=== PATIENT | female | born 1935 | race Caucasian/White ===

== ENCOUNTER → 2017-06-26 | Outpatient (CLI) | payer OTHER, BC ==
[~2017-06-26] MED LIST: ACTONEL 5 MG5 M1 PO; ADULT LOW DOSE81 MG PO; AMOXICILLIN 50500 MG PO; CALCIUM + D3 E1 EACH PO; CALCIUM 600 +1 EAC1 PO; DIOVAN HCT 1601 EACH PO; FISH OIL WITH1 EACH PO; GLUCOSAMINE CH1 EAC8 PO; IBUPROFEN 200200 M1 PO; LEXAPRO 10 MG T10 M1 PO; LO-DOSE ASPIRIN81 M1 PO; LORAZEPAM 0.50.5 MG PO; MIRALAX255 GM PO; MULTIVITAMINS1 EAC7 PO; NORCO 5-325 TA1 EACH PO; OMEPRAZOLE 20 M20 M1 PO; SYMBICORT160 MCG/4. INH; ZANTAC 150MG T150 M1 PO; ZYVOX600 MG PO
== END ==
LOC: ULTRA 14:15
DX: I70.291 Other atherosclerosis of native arteries of extremities, right leg (principal); I10 Essential (primary) hypertension; K21.9 Gastro-esophageal reflux disease without esophagitis; J45.909 Unspecified asthma, uncomplicated

== ENCOUNTER → 2019-12-23 | Outpatient (CLI) | payer OTHER, BC ==
[~2019-12-23] VITALS: Ht 157.5 cm; Wt 64.4 kg
[~2019-12-23] MED LIST changes: +ADVAIR 100-501 EACH INH; +AZELASTINE205.5 MCG/ NARES; +FLONASE 0.05%50 MCG NARES; +IRBESARTAN-HCT1 EAC1 PO; +PROAIR HFA8.5 GM INH; +SINGULAIR 10 MG10 MG PO; +VOLTAREN GEL 1100 G1 TOP
[2019-12-23 08:38] VITALS: BP 152/70
[2019-12-23 08:42] LABS: HEMATOCRIT 34.8 % (37.0-47.0); MCH 30.7 pg (26.0-34.0); MCHC 34.5 g/dL (28.0-37.0); MCV 89.1 fL (80.0-100.0); RBC 3.91 mil/uL (4.20-5.00); RDW 14.5 % (10.5-14.5); WBC 3.9 thou/uL (4.0-11.0)
[2019-12-23 08:50] LABS: CALCIUM 9.2 mg/dL (8.5-10.1); CREATININE 0.7 mg/dL (0.6-1.0); POTASSIUM 4.2 mmol/L (3.5-5.1)
[2019-12-23 09:09] LABS: APTT 28.5 Seconds (24.5-32.8); PROTIME 10.3 Seconds (9.3-11.4)
== END | disposition home or self-care (01) ==
LOC: CATH 12-22 15:27
PROVIDERS: ATTEND Nuclear Medicine Nuclear Cardiology
DX: M54.9 Dorsalgia, unspecified (principal); M80.08XA Age-related osteoporosis with current pathological fracture, vertebra(e), initial encounter for fracture; I10 Essential (primary) hypertension; J44.9 Chronic obstructive pulmonary disease, unspecified; K21.9 Gastro-esophageal reflux disease without esophagitis; Z98.890 Other specified postprocedural states; Z79.899 Other long term (current) drug therapy; Z90.49 Acquired absence of other specified parts of digestive tract; Z90.710 Acquired absence of both cervix and uterus

== ENCOUNTER 2020-01-06 16:36 | Inpatient (IN) | payer OTHER, BC ==
[~2020-01-06] VITALS: Ht 152.4 cm; Wt 64.4 kg
[2020-01-06 16:38] VITALS: BP 114/57
[2020-01-06 17:30] LABS: BASOPHILS 0.3 % (0.0-2.0); EOSINOPHILS 0.5 % (0.0-3.0); HEMATOCRIT 35.3 % (37.0-47.0); HEMOGLOBIN 12.3 gm/dL (12.0-15.0); LYMPHOCYTES 8.2 % (24.0-44.0); MCH 30.8 pg (26.0-34.0); MCHC 34.9 g/dL (28.0-37.0); MCV 88.2 fL (80.0-100.0); MONOCYTES 7.6 % (1.0-8.0); PLATELET COUNT 336 thou/uL (150-400); POLYS 83.4 % (36.0-66.0); RDW 14.5 % (10.5-14.5); WBC 8.4 thou/uL (4.0-11.0)
[2020-01-06 17:36] LABS: ANION GAP 10 mmol/L (7-16); BUN 13 mg/dL (7-18); CALCIUM 9.3 mg/dL (8.5-10.1); CHLORIDE 87 mmol/L (98-107); CO2 24 mmol/L (21-32); CREATININE 0.8 mg/dL (0.6-1.0); GLUCOSE 123 mg/dL (74-106); SODIUM 121 mmol/L (136-145)
[2020-01-06 17:48] LABS: ALBUMIN 3.6 g/dL (3.4-5.0); SGOT 20 U/L (15-37); SGPT 18 U/L (30-65); TOTAL BILIRUBIN 0.6 mg/dL (0.2-1.0); TOTAL PROTEIN 6.9 g/dL (6.4-8.2); TROPONIN-I <0.06 ng/mL (<0.06)
[2020-01-06] MEDS ORDERED: ALEVE220 MG PO (19:18)
[2020-01-06] MEDS ORDERED: AVALIDE 300-121 EACH PO (19:18)
[2020-01-06 19:55] VITALS: BP 157/84
[2020-01-06 20:42] VITALS: BP 137/76
[2020-01-06 20:55] VITALS: BP 154/86
--- NOTE | 2020-01-07 00:12 | NUR ---
PT WAS ADMITTED TO THE UNIT FROM THE ER IN A STABLE CONDITION.PT HAS A CAST COVERED WITH CASPER WRAP ON HER RLE.ADMISSION HX, EDUCATION AND ASSESSMENT COMPLETED.PT C/O PAIN ON HER RLE,MANAGED WITH MED.ORDER NOTED TO INSERT A BENTON,PT HAS A BENTON TO DD.FALL PRECAUTIONS IN PLACE,CALL LIGHT WITHIN REACH.
[2020-01-07 04:05] VITALS: BP 139/85
[2020-01-07 06:00] LABS: CALCIUM 9.2 mg/dL (8.5-10.1); CREATININE 0.7 mg/dL (0.6-1.0); POTASSIUM 3.7 mmol/L (3.5-5.1)
[2020-01-07 06:22] LABS: PROTIME 10.5 Seconds (9.3-11.4)
[2020-01-07 08:11] LABS: HEMATOCRIT 34.2 % (37.0-47.0); HEMOGLOBIN 11.5 gm/dL (12.0-15.0); MCH 30.2 pg (26.0-34.0); MCHC 33.7 g/dL (28.0-37.0); MCV 89.5 fL (80.0-100.0); RBC 3.82 mil/uL (4.20-5.00); RDW 14.3 % (10.5-14.5); WBC 6.2 thou/uL (4.0-11.0)
[2020-01-07 10:54] VITALS: BP 151/89
--- NOTE | 2020-01-07 14:39 | NUR ---
ASSESSMENT: CM REVIEWED CHART AND MET WITH PATIENT AT THE BEDSIDE. PT WAS ADMITTED AFTER TIB FIB FRACTURE AND IS HAVING SURGERY TODAY. PT REPORTS SHE LIVES IN A HOUSE WITH HER DAUGHTER. PT REPORTS HAVING NO STEPS SHE HAS TO USE AT THE HOME. PT NORMALLY AMBULATES VIA WHEELCHAIR BUT ALSO HAS A WALKER AT HOME. PT REPORTS HAVING A SHOWER BENCH. PT STATES SHE HAD HH YEARS AGO ([facility]). PT REPORTS SHE HAS NEVER BEEN TO A SNF/ACUTE REHAB. PER ATTENDING PT MAY NEED TO GO TO A SNF AFTER SURGERY PENDING HOW SHE DOES WITH THERAPY. CM ATTEMPTED TO CONTACT PATIENTS DAUGHTER ENRIQUETA BUT UNABLE TO REACH AND VM WAS LEFT. CM LEFT A LIST OF SNF FACILITIES AT THE BEDSIDE. NO PLANS FOR WEEKEND DISCHARGE. CM WILL CONTINUE TO FOLLOW TO ASSIST NEEDED.
[2020-01-07 15:11] LABS: HEMATOCRIT 29.4 % (37.0-47.0); HEMOGLOBIN 10.1 gm/dL (12.0-15.0); MCH 30.9 pg (26.0-34.0); MCHC 34.5 g/dL (28.0-37.0); MCV 89.8 fL (80.0-100.0); RBC 3.28 mil/uL (4.20-5.00); RDW 14.6 % (10.5-14.5)
[2020-01-07 16:19] VITALS: BP 149/87
--- NOTE | 2020-01-07 16:19 | EKG ---
[facility] [place] [address] ELECTROCARDIOGRAM REPORT Name: MARISELA THRASHER Room #: 443- ADM IN M.R.#: [id number] Admission: 01/06/20 Attend Phys: Wild Schmidt, Discharge: Date of : 31 Report #: [id number] THIS REPORT FOR: cc: Jamey Jay,Marcos Concepcion Jr.,Marcos Hearn,Daljit Robertson MD [facility] ~ THIS REPORT FOR: //name// [facility] ED Test Date: 2020-01-06 Test Time: 19:32:27 Pat Name: MARISELA THRASHER Department: Room: 443 Gender: F Field Care Advocate: LLOYD : 1935 Requested By: Huang Presley Order Number: [id number] MD: Daljit Hearn Measurements Intervals Otto Rate: 80 P: 44 WY: 225 QRS: 5 QRSD: 99 T: 58 QT: 404 QTc: 466 Interpretive Statements Sinus rhythm Prolonged WY interval No previous ECG available for comparison Electronically Signed On 01-07-2020 16:19:03 CDT by Daljit Hearn [email or web address] <ELECTRONICALLY SIGNED> By: Daljit Hearn MD, [facility] 01/07/20 1619 31 31 Daljit Hearn MD, [facility] /EPI
--- NOTE | 2020-01-07 16:49 | NUR ---
PT A&OX4. DRWOSESteven, RETURNED FROM PACU. VSS. O2 @ 2L. SOFT CAST TO R LOWER EXTREMITY SECURED WITH CASPER WRAP. SCD AND RENE HOSE TO LLE. DAUGHTER AT THE BEDSIDE. CALL LIGHT W/I REACH, BED ALARM ON. CHTEAN TO ALEKSANDRA.
[2020-01-07 17:56] VITALS: BP 137/77
[2020-01-07 23:30] VITALS: BP 105/55
--- NOTE | 2020-01-08 03:37 | NUR ---
PT IS S/P R TIB-FIB IM NAILING. RLE IN SPLINT, ELEVATED AND ICE GABRIELLA IN PLACE.PT GIVEN ONE TIME DOSE OF FENTANYL FOR A 7/10 PAIN. R TOES WITH GOOD CIRCULATION, SENSATION AND MOVEMENT. AFEBRILE. REMAINS ON ROOM AIR. BENTON TO D/D WITH LIGHT YELLOW U/O, SHE CONTINUES ON IV FLUIDS AND ABTS.SHE IS ALSO DRINKING SOME. ONLY OTHER DISCOMFORT WAS DYSPEPSIA, TUMS HELPED.SHE REMAINS ALERT AND ORIENTED. SPLINT TO RLE INTACT, BLEEDING NOTED ON DRSG- NOT WORSENING, WILL CONTINUE TO MONITOR.
[2020-01-08 04:10] VITALS: BP 115/59
[2020-01-08 05:37] LABS: HEMOGLOBIN 8.6 gm/dL (12.0-15.0); MCH 30.8 pg (26.0-34.0); MCHC 34.4 g/dL (28.0-37.0); MCV 89.6 fL (80.0-100.0); RBC 2.8 mil/uL (4.20-5.00); RDW 14.3 % (10.5-14.5); WBC 8.1 thou/uL (4.0-11.0)
[2020-01-08 08:00] VITALS: BP 109/65
[2020-01-08 10:05] LABS: CALCIUM 8.4 mg/dL (8.5-10.1); CREATININE 0.7 mg/dL (0.6-1.0); POTASSIUM 3.8 mmol/L (3.5-5.1)
--- NOTE | 2020-01-08 14:52 | NUR ---
ORDERED KNEE HIGH RENE PEREZ FROM FOR PATIENT.
[2020-01-08 15:30] VITALS: BP 126/61
--- NOTE | 2020-01-08 20:48 | NUR ---
PT UP IN BEDSIDE CHAIR TODAY ALSO WORKED WITH THERAPY GIVEN PRN PAIN MEDS ORDERED AND REQUESTED. RIGHT TIBIA DRESSING REINFORCED AND LOWER HALF DRESSING CHANGED. FLUIDS INFUSING ORDERED.
--- NOTE | 2020-01-09 02:44 | NUR ---
ASSESSMENT COMPLETED. SPLINT IN PLACE TO RLE WHICH IS ALSO ELEVATED ON PILLOW. PT DENIES PAIN. DRSG REMAINS C/D/I. GOOD SENSATION, MOVEMENT AND CIRCULATION NOTED TO THE R TOES. ON ROOM AIR-NO DISTRESS.
[2020-01-09 04:45] VITALS: BP 183/74
[2020-01-09 05:44] LABS: ABSOLUTE NEUTROPHILS 4.2 thou/uL (1.4-8.2); BASOPHILS 0.8 % (0.0-2.0); EOSINOPHILS 1.1 % (0.0-3.0); HEMATOCRIT 24.4 % (37.0-47.0); HEMOGLOBIN 8.4 gm/dL (12.0-15.0); LYMPHOCYTES 17.9 % (24.0-44.0); MCH 30.9 pg (26.0-34.0); MCHC 34.5 g/dL (28.0-37.0); MCV 89.8 fL (80.0-100.0); MONOCYTES 9.7 % (1.0-8.0); PLATELET COUNT 279 thou/uL (150-400); POLYS 70.5 % (36.0-66.0); RBC 2.72 mil/uL (4.20-5.00); RDW 14.3 % (10.5-14.5)
[2020-01-09 06:06] LABS: CALCIUM 8.6 mg/dL (8.5-10.1); CREATININE 0.7 mg/dL (0.6-1.0); POTASSIUM 3.3 mmol/L (3.5-5.1)
[2020-01-09 07:15] VITALS: BP 156/76
[2020-01-09 16:00] VITALS: BP 133/64
--- NOTE | 2020-01-09 16:33 | NUR ---
PT A&OX4. NWB TO RIGHT LOWER EXTREM. FOOT IS SWOLLEN, WARM TO TOUCH AND BRUISED. TOLERATING PO PAIN MED WELL. APPETITE IS GOOD. SEROUS SANG DRAINAGE DRAINING FROM THE BOTTOM OF DRSG. WILL REINFORCE DRSG.CALL LIGHT W/I REACH BED ALARM ON.
[2020-01-09 19:23] VITALS: BP 138/71
[2020-01-09 20:43] VITALS: BP 138/71
[2020-01-10 04:04] VITALS: BP 141/85
--- NOTE | 2020-01-10 05:56 | NUR ---
PT AOX4. PT DENIES PAIN AT REST, REPORTS EXACERBATION IN PAIN WITH MOVEMENT. PT CAPILLARY REFILL TO RLE SLUGGLISH, LLE LESS THAN 3SECONDS. SENSATION INTACT TO BLE. BLE BLANCHABLE. PT DENIES SOB. PT REFUSES PAIN MEDICATION DUE TO REPORTS OF COMFORT AT REST. PT HAS PRN PO NORCO Q4HR, PRN IV MORPHINE Q1HR, PRN IV FENTANYL Q4HR AVAILABLE. FREQUENT REPOSITIONING ENCOURAGED, PT REFUSING Q2HR TURNS DUE TO REPORTS OF COMFORT. PT TOLERATING PO INTAKE OF FLUIDS AND REGULAR DIET. PT RESTING IN BED THROUGHOUT THE SHIFT. PT NOTED TO REST IN BED WITHOUT INTERRUPTION OR OBSERVATION OF PAIN, DISCOMFORT, OR SOB. ENCOURAGED PT TO NOTIFY STAFF FOR ALL NEEDS. CALL LIGHT WITHIN REACH, BED ALARM ON, BED IN LOWEST POSITION, WILL CONTINUE TO MONITOR.
[2020-01-10 06:24] LABS: CALCIUM 8.3 mg/dL (8.5-10.1); CREATININE 0.5 mg/dL (0.6-1.0); POTASSIUM 3.4 mmol/L (3.5-5.1)
[2020-01-10 08:10] VITALS: BP 180/85
--- NOTE | 2020-01-10 09:14 | H ---
[facility] [place] [address] [place] [address] HISTORY AND PHYSICAL Name: MARISELA THRASHER Room #: 443-P ADM IN M.R.#: [id number] Admission: 01/06/20 Attend Phys: Wild Schmidt, Discharge: Date of : 33 Report #: [id number] THIS REPORT FOR: cc: Marcos Concepcion Jr., MD, Jr., Samuel D. MD Gates, Clinton R. MD ~ CC: Wild Concepcion DATE OF SERVICE: 01/06/2020 ATTENDING PHYSICIAN: Dr. Koroma. CHIEF COMPLAINT: Fall out of a wheelchair. HISTORY OF PRESENT ILLNESS: The patient is a very pleasant 84-year-old female who is status post fall out of a wheelchair. The patient reports that she was on her way to the bathroom in her wheelchair when she began having a woozy feeling in her head. She passed out, fell out of the wheelchair and fell onto her right side. She did lose consciousness. She is complaining of pain in her right leg only. She does have chronic back pain, but notes that this is unchanged. PAST MEDICAL HISTORY: 1. On 81 mg aspirin. 2. Hypertension. 3. Asthma. 4. Osteoporosis. 5. COPD. PAST SURGICAL HISTORY: 1. Appendectomy. 2. Recent spine procedures, possible kyphoplasty. 3. Hysterectomy. 4. Right knee procedure. SOCIAL HISTORY: Lives with daughter. Lives in [place]. FAMILY HISTORY: Denies coagulopathy or malignancy. REVIEW OF SYSTEMS: CONSTITUTIONAL: No fever. No chills. HEENT: Denies blurring of vision, double vision, headaches, hearing loss, sinus drainage or sore throat. Denies blurring of vision, double vision, headaches, hearing loss, sinus drainage or sore throat. [facility] [address] [place] [address] HISTORY AND PHYSICAL Name: MARISELA THRASHER Room #: 443-P [facility].#: [id number] Admission: 01/06/20 Attend Phys: Wild Schmidt, Discharge: Date of : 33 Report #: [id number] CARDIOVASCULAR: Denies chest pain, palpitations, orthopnea or paroxysmal nocturnal dyspnea. RESPIRATORY: Denies cough, wheezing, hemoptysis, or shortness of air. GASTROINTESTINAL: No nausea. No vomiting. No diarrhea. No Heartburn. No nausea. No vomiting. No diarrhea. No Heartburn. GENITOURINARY: Denies dysuria or hematuria or kidney stones. No urinary frequency, urgency or incontinence. Denies dysuria or hematuria or kidney stones. No urinary frequency, urgency or incontinence. MUSCULOSKELETAL: Please see above and below. NEUROLOGICAL: Denies tremor, stroke or seizure. Denies tremor, stroke or seizure. HEMATOLOGIC/LYMPHATICS: Denies easy bruising, easy bleeding or enlarged lymph nodes. SKIN: No rash or ulceration. ENDOCRINE: No heat or cold intolerance PSYCHIATRIC: Denies depression, anxiety, or schizophrenia. PHYSICAL EXAMINATION: VITAL SIGNS: Temperature is 36.4, pulse 87, respiratory rate 18, blood pressure 151/89, pulse oximetry 100%. GENERAL: No apparent distress, alert and oriented x3. HEENT: PERRLA, EOMI, MMM, NCAT. NECK: Supple. No LAD. CARDIOVASCULAR: Regular rhythm and rate. Hemodynamically stable. Normal capillary refill. Regular rhythm and rate. Hemodynamically stable. Normal capillary refill. PULMONARY: Nonlabored. Clear to auscultation bilaterally. ABDOMEN: Soft, nontender to palpation, no guarding, no rigidity, no rebound tenderness, no hernias. EXTREMITIES: Calves soft, nontender, no edema. SKIN: No rashes or bruises. PSYCHIATRIC: Normal mood and affect Normal mood and affect. NEUROLOGICAL: Grossly intact. CN II-XII grossly intact. MUSCULOSKELETAL: Right lower extremity in a splint, able to wiggle toes and feel light touch sensation. C, T and L-spine are nontender to palpation. LYMPHATICS: No cervical, inguinal, or supraclavicular lymphadenopathy. IMAGING: Impression: 1. Right midshaft tibial fracture with distal fragment showing 1.2 cm medial and 6 mm anterior position in relation to the proximal shaft. 2. Comminuted distal third fibular shaft fracture with oblique component of 1.8 cm comminuted fragment. The distal fibula shows 6 mm anterior positioning in relation to the proximal shaft. Chest x-ray: [facility] [address] [place] [address] HISTORY AND PHYSICAL Name: MARISELA THRASHER Sinan Room #: 443-P ADM IN M.R.#: [id number] Admission: 01/06/20 Attend Phys: Wild Schmidt, Discharge: Date of : 33 Report #: [id number] Impression: No acute cardiopulmonary process detected. Foot x-ray: Impression: Oblique distal fifth metatarsal shaft fracture without significant displacement. No additional fractures are seen. Prominent overlying iatrogenic soft tissue density is demonstrated. CT head: Impression: 1. Moderately prominent periventricular microvascular ischemia with mild atherosclerotic change. 2. No findings of acute intracranial abnormality. 3. Volume loss. CTA lower extremity: Impression: 1. Diffuse peripheral arterial disease. There is multifocal, probably less than 50% stenosis of the common femoral and superficial femoral arteries bilaterally. 2. Greater than 70% bilateral popliteal artery stenosis secondary to circumferential calcified atherosclerosis plaque. 3. Three-vessel runoff is present bilaterally. 4. Comminuted right tibia and fibula fractures. 5. Large amount of retained stool in the colon. ASSESSMENT/PLAN: The patient is an 84-year-old female status post fall out of a wheelchair. DIAGNOSES: 1. Fall out of a wheelchair. 2. Syncope. 3. Right tib-fib fracture. 4. Hypertension. 5. Chronic obstructive pulmonary disease. 6. Wheelchair bound. RECOMMENDATIONS: 1. Admit to trauma. 2. Consult Orthopedic Surgery. Appreciate recommendations. Bed rest until evaluation. 3. Consult Medicine. Appreciate recommendations. Syncope workup per Medicine. 3. Analgesics and antiemetics. 4. Bowel regimen for constipation, only on the diet. [facility] [address] [place] [address] HISTORY AND PHYSICAL Name: MARISELA THRASHER Sinan Room #: 443-P ADM IN [facility]#: [id number] Admission: 01/06/20 Attend Phys: Wild Schmidt, Discharge: Date of : 33 Report #: [id number] 5. Increase activity with physical therapy status post orthopedic evaluation. 6. Case management consult. <ELECTRONICALLY SIGNED> By: Lazaro Koroma MD 01/10/20 0914 1110 1153 Lazaro Koroma MD /nt
--- NOTE | 2020-01-10 13:40 | NUR ---
ON-GOING ASSESSMENT: CM REVIEWED CHART AND SPOKE WITH ATTENDING. PT IS LIKELY STABLE FOR DISCHARGE TOMORROW TO SNF. CM DISCUSSED WITH PT AND HER DAUGHTER. THEY WANTED [facility]FERRALS S[facility]. [facility] WAS NOTIFIED THAT [facility] ARE NOT ACCEPTING NEW ADMITS AT THIS TIME. CM SENT REFERRALS TO [facility] AND [facility] AND AWAITING FURTHER INPUT. CM WILL CONTINUE TO FOLLOW TO ASSIST NEEDED.
[2020-01-10 15:15] VITALS: BP 119/76
--- NOTE | 2020-01-10 16:00 | NUR ---
ASSESSED AT START OF SHIFT 0700 PT A&OX4. UP WITH PHYSICAL THERAPY TO THE CHAIR. PT DTR AT BEDSIDE. PAIN MEDS GIVEN FOR MANAGEMENT. IV INTACT AND FLUIDS INFUSING. FALL PREC IN PLACE AND CALL LIGHT IN REACH WILL CONT TO MONITOR.
[2020-01-10 19:50] VITALS: BP 142/86
--- NOTE | 2020-01-11 02:38 | NUR ---
ASSUMED PT CARE AT 1900. PT A&OX4. FLUIDS WERE D/C TONIGHT. REPORTED PAIN IN FOOT, BUT DID NOT WANT PAIN MEDICATION FOR IT. BENTON PATENT WITH GOOD OUTPUT. RIGHT LEG DRESSING HAS SOME WHAT LOOKS LIKE DRIED DARINAGE TO IT. RADIOLOGY CALLED STATING THE MRI COULD NOT BE DONE 01/09 AND THEY WOULD DO IT TODAY, ASKED FOR ORDER TO BE UPDATED. PT CURRENTLY RESTING IN BED WITH EYES CLOSED. NO OTHER SIGNIFICANT CHANGES AT THIS TIME.
[2020-01-11 04:02] VITALS: BP 156/77
[2020-01-11 05:56] LABS: ABSOLUTE NEUTROPHILS 4.3 thou/uL (1.4-8.2); BASOPHILS 0.7 % (0.0-2.0); EOSINOPHILS 2.6 % (0.0-3.0); HEMATOCRIT 24.4 % (37.0-47.0); HEMOGLOBIN 8.2 gm/dL (12.0-15.0); LYMPHOCYTES 17.7 % (24.0-44.0); MCH 30.3 pg (26.0-34.0); MCHC 33.6 g/dL (28.0-37.0); MCV 90.1 fL (80.0-100.0); MONOCYTES 9.5 % (1.0-8.0); PLATELET COUNT 293 thou/uL (150-400); POLYS 69.5 % (36.0-66.0); RDW 14.1 % (10.5-14.5); WBC 6.1 thou/uL (4.0-11.0)
[2020-01-11 06:35] LABS: ALBUMIN 2.7 g/dL (3.4-5.0); CALCIUM 8.5 mg/dL (8.5-10.1); CREATININE 0.5 mg/dL (0.6-1.0); POTASSIUM 3.8 mmol/L (3.5-5.1)
[2020-01-11 06:40] LABS: CALCIUM 8.6 mg/dL (8.5-10.1); CREATININE 0.5 mg/dL (0.6-1.0)
[2020-01-11 08:04] VITALS: BP 144/78
--- NOTE | 2020-01-11 08:36 | 2DMMODE ---
[facility] [place] [address] 2 D/M-MODE ECHOCARDIOGRAM Name: MARISELA THRASHER Room #: 443-P [facility] IN ..#: [id number] Admission: 01/06/20 Attend Phys: Wild Schmidt, Discharge: Date of : 33 Report #: [id number] THIS REPORT FOR: cc: Marcos Concepcion Jr., MD, Jr.,Marcos Hearn,Daljit Robertson MD [facility] ~ APPROVED REPORT Study performed: 01/11/2020 07:41:58 EXAM: Comprehensive 2D, Doppler, and color-flow Echocardiogram Patient Location: Bedside Room #: 443 Status: routine BSA: 1.61 HR: 88 bpm BP: 156/77 mmHg Rhythm: Regular Other Information Study Quality: Good Indications Murmur, syncope. 2D Dimensions RVDd: 24.39 mm IVSd: 11.00 (7-11mm) LVOT Diam: 21.00 (18-24mm) LVDd: 41.00 mm PWd: 11.00 (7-11mm) Ascending Ao: 36.00 (22-36mm) LVDs: 28.31 (25-40mm) Aortic Root: 39.00 mm Volumes Left Atrial Volume (Systole) Single Plane 4CH: 47.08 mL Single Plane 2CH: 66.27 mL LA ESV Index: 36.00 mL/m2 Aortic Valve AoV Peak Gibran.: 2.30 m/s AO Peak Gr.: 21.24 mmHg LVOT Max P.82 mmHg AO Mean Gr.: 10.10 mmHg AO V2 Mean: 1.50 m/s LVOT Max V: 1.57 m/s AO V2 VTI: 41.04 cm [facility] [address] [place] [address] 2 D/M-MODE ECHOCARDIOGRAM Name: MARISELA THRASHER Room #: 443-P [facility] IN ..#: [id number] Admission: 01/06/20 Attend Phys: Wild Almazan Discharge: Date of : 33 Report #: [id number] Vmax: 2.30 cm2 Mitral Valve IVRT: 93.43 ms Pulmonary Valve PV Peak Gibran.: 0.83 m/s PV Peak Gr.: 2.73 mmHg Tricuspid Valve RAP Estimate: 5.00 mmHg Left Ventricle The left ventricle is normal size. There is normal LV segmental wall motion. Mild basal septal hypertrophy is present. Left ventricular systolic function is hyperdynamic. LVEF is 65-70%. This study is not technically sufficient to allow evaluation of the LV diastolic function. Right Ventricle The right ventricle is normal size. The right ventricular systolic function is normal. Atria Left atrium is mildly dilated. The right atrium size is normal. Aortic Valve Aortic valve is moderately calcified No aortic regurgitation is present. There is no aortic valvular stenosis. Mitral Valve The mitral valve is normal in structure. Moderate mitral regurgitation. No evidence of mitral valve stenosis. Tricuspid Valve The tricuspid valve is normal in structure. There is no tricuspid valve regurgitation noted. Unable to assess PA pressure. Pulmonic Valve The pulmonary valve is normal in structure. Trace pulmonic regurgitation. Great Vessels Aortic root is mildly dilated (3.9). The ascending aorta is normal in size. IVC is normal in size and collapses >50% with inspiration. [facility] [place] [address] 2 D/M-MODE ECHOCARDIOGRAM Name: MARISELA THRASHER Sinan Room #: 443-P [facility] IN .R.#: [id number] Admission: 01/06/20 Attend Phys: Wild Almazan Discharge: Date of : 33 Report #: [id number] Pericardium There is no pericardial effusion. <Conclusion> Left ventricular systolic function is hyperdynamic. There is normal LV segmental wall motion. LVEF is 65-70%. Left atrium is mildly dilated. Aortic valve is moderately calcified. No aortic regurgitation or stenosis The mitral valve is normal in structure. Moderate mitral regurgitation. Unable to assess pulmonary artery pressure. Aortic root is mildly dilated (3.9). There is no pericardial effusion. <ELECTRONICALLY SIGNED> By: Daljit Hearn MD, [facility] 01/11/20 0836 D: 07/835 5 Daljit Hearn MD, FACC /INF
--- NOTE | 2020-01-11 16:07 | NUR ---
ON-GOING ASSESSMENT: CM REVIEWED CHART AND SPOKE WITH ATTENDING. PLANS WERE FOR PATIENT TO DISCHARGE TO [facility] PENDING MRI RESULTS. PT HAD MRI AND IR WAS CONSULTED. CM UPDATED LIASON FROM [facility]. CM WILL CONTINUE TO FOLLOW TO ASSIST NEEDED.
[2020-01-11 16:40] VITALS: BP 149/76
--- NOTE | 2020-01-11 19:30 | NUR ---
PT ASSESSED AT START OF SHIFT. WORKED W/ THERAPY SOME. DAUGHTER HERE FOR VISIT. EATING WELL. HAD ECHO. WENT FOR MRI OF SPINE LATER AFTERNOON AND NOTED TO HAVE COMPRESSION FRACTURE SINCE HAVING KYPHOPLASTY 2 WEEKS AGO. NEURO AND IR CONSULT PER DR. DAVIS.
[2020-01-12 01:42] VITALS: BP 155/84
--- NOTE | 2020-01-12 03:14 | NUR ---
ASSUMED PT CARE AT 1900. PT IS A&OX3. ANXIOUS TONIGHT, WORRIED ABOUT INJURY TO BACK. JUST WANTED TO TAKE HER NIGHTTIME MEDS AND GO TO SLEEP. DRESSING D/C/I, LEGS ELEVATED ABOVE THE HEART DUE TO EDEMA IN FEET. PAIN BEING MANAGED WITH PO PAIN MEDS. NO OTHER SIGNIFICANT CHANGES.
[2020-01-12 03:45] VITALS: BP 149/90
[2020-01-12 08:49] VITALS: BP 138/93
--- NOTE | 2020-01-12 11:19 | NUR ---
ON-GOING ASSESSMENT: CM REVIEWED CHART. PLAN IS FOR PATIENT TO HAVE KYPHO TOMORROW. [facility] [place] WAS NOTIFIED. [facility]RO SPOKE WITH LISET IN ADMISSIONS TO CLARIFY IF PATIENT NEED ANOTHER COVID TEST PRIOR TO ADMITTING AND SHE STATES THE PATIENT DOES NOT NEED TO HAVE ANOTHER TEST AND THE NEGATIVE RESULT FROM 01/05 IS OK. CM WILL CONTINUE TO FOLLOW.
[2020-01-12 16:02] VITALS: BP 120/58
--- NOTE | 2020-01-12 18:22 | NUR ---
Assumed patient care at 0715. Vital signs stable, LSCTA, ABD soft and non-tender, BS x's 4; skin is clean, warm, dry and intact. IV is in left AC, patent. Patient is alert and oriented x's 4, she has a savage catheter in place due to recent surgery as well as T-12 Compression fracture. Patient is to have Kyphoplasty tomorrow. Patient's pain has been difficult to reduce. Hydrocodone po is not effective at all. Morphine 2mg per IV push is effective for an hour to 1 hour and 15minutes. Fentanyl 1mL q 4 hrs per IV push is effective as well. Patient does not seem to rate her pain as high as it appears to be, as she moans, winces and frowns in pain. 2nd Covid Test sent to lab. Results will be in tomorrow. Will report to on-coming nurse.
[2020-01-12 21:45] VITALS: BP 138/47
[2020-01-13] VITALS (9 sets, daily range): BP systolic 101–153; BP diastolic 59–79
--- NOTE | 2020-01-13 03:19 | NUR ---
ASSUMED PT CARE AT 1900. PT SLEEPING UPON SHIFT CHANGE. PM MEDS GIVEN WITH A PAIN PILL. BENTON PATENT WITH GOOD OUTPUT. NPO SINCE MIDNIGHT FOR PROCEDURE TOMORROW. LEG ELEVATED, DRESSING D/C/I. NO COMPLAINTS AT THIS TIME, WILL CONTINUE TO MONITOR.
[2020-01-13] MEDS ORDERED: NORVASC5 MG PO (09:18)
--- NOTE | 2020-01-13 11:46 | NUR ---
UPON GREETING PT THIS MORNING, PT WENT TO SURGERY PRECEDURE, TOLERATED SURGERY APPROPRIATELY, ASSESSMENT WITH STABLE VITALS, BENTON REMOVED, REGULAR DIET POST SURGERY, C/O LOWER BACK PAIN, MORNING MEDS ADMINISTERED WITH PAIN PATCH TO LOWER BACK. FALL PRECAUTIONS IN PLACE, CONTINUE TO MONITOR.
--- NOTE | 2020-01-13 13:01 | NUR ---
PT DISCHARGING TODAY TO [facility] FAXED DC ORDERS/SUMMARY TO FACILITY SPOKE WITH JAE IN ADM SHE RECEIVED ORDERS AND ARRANGED TRANSPORT BY [facility] FOR 1425 TODAY. NOTIFIED PT'S SON (KATIE) OF DC AND TIME OF TRANSPORT. UNIT NOTIFIED AND CHART COPY PER US. RN TO CALL REPORT TO [phone]
--- NOTE | 2020-01-13 13:27 | NUR ---
PT DISCHARGING TODAY TO [facility] FAXED DC ORDERS/SUMMARY TO FACILITY SPOKE WITH JAE IN ADM SHE RECEIVED ORDERS AND ARRANGED TRANSPORT BY [facility] FOR 1400 TODAY. NOTIFIED PT'S SON (KULWANT) OF DC AND TIME OF TRANSPORT. UNIT UNOTIFIED AND CHART COPY PER US. RN TO CALL REPORT TO [phone].
--- NOTE | 2020-01-13 16:50 | NUR ---
Call re'd from RN, as surgery saw the pt and placed dc on hold due to pain. Anticipating dc ready for snf tomorrow. [facility] notified and transport cancel. Family aware as they were in the room with the pt. Will follow.
--- NOTE | 2020-01-13 21:26 | NUR ---
1900 ASSUMED CARE OF PT AFTER BEDSIDE REPORT 2100 BASELINE ASSESSMENT COMPLETED, PAIN MEDS GIVEN FOR PAIN RATED 8/10 TO BACK, FALL PRECAUTIONS IN PLACE, WILL CONTINUE TO MONITOR
--- NOTE | 2020-01-14 03:48 | NUR ---
PT AOX4. PT NOTED TO EDOUARD, HEARING AIDES IN CONTAINER ON BEDSIDE TABLE. PT DENIES PAIN AND SOB. PAIN NOTED TO WORSEN WITH MOVEMENT. PT RECEIVING PRN PO NORCO Q4HR AND PRN IV MORPHINE Q1HR. PT HAS PRN PO APAP Q4HR AVAILABLE. FREQUENT REPOSITIONING ENCOURAGED. PT NOTED TO SHIFT INDEPENDENTLY WHILE IN BED. WHILE PROVIDING PERICARE, BLISTER TO LEFT GLUTEAL FOLD, BLISTER WITH FLUID, NONTENDER, NO SURROUNDING REDDNESS. BARRIER CREAM CONTINUES TO BE APPLIED WITH ALL PERICARE. PT TOLERATING PO INTAKE OF FLUIDS WITHOUT ISSUE. PT CONTINUES TO REST IN BED WITHOUT INTERRUPTION OR OBSERVATION OF PAIN, SOB, OR DISCOMFORT. ENCOURAGED PT TO NOTIFY STAFF FOR ALL NEEDS. CALL LIGHT WITHIN REACH, BED ALARM ON, BED IN LOWEST POSITION, WILL CONTINUE TO MONITOR.
[2020-01-14 04:26] VITALS: BP 145/77
[2020-01-14 06:00] LABS: HEMATOCRIT 25.1 % (37.0-47.0); HEMOGLOBIN 8.4 gm/dL (12.0-15.0); MCH 30.5 pg (26.0-34.0); MCHC 33.7 g/dL (28.0-37.0); MCV 90.4 fL (80.0-100.0); RBC 2.77 mil/uL (4.20-5.00); RDW 14.1 % (10.5-14.5); WBC 7.6 thou/uL (4.0-11.0)
[2020-01-14 06:16] LABS: ALBUMIN 2.6 g/dL (3.4-5.0); CALCIUM 8.9 mg/dL (8.5-10.1); CREATININE 0.6 mg/dL (0.6-1.0); MAGNESIUM 1.8 mg/dL (1.8-2.4); PHOSPHORUS 3.3 mg/dL (2.5-4.9); POTASSIUM 4.3 mmol/L (3.5-5.1)
[2020-01-14 07:40] VITALS: BP 130/75
[2020-01-14 09:07] VITALS: BP 130/75
--- NOTE | 2020-01-14 09:07 | O ---
[facility] [place] [address] OPERATIVE REPORT Name: MARISELA THRASHER Room #: 443-P ADM IN M.R.#: [id number] Admission: 01/06/20 Attend Phys: Wild Schmidt, Discharge: Date of : 31 Report #: [id number] THIS REPORT FOR: cc: Marcos Concepcion Jr., MD, Jr., Samuel D. MD Abraham, Scott M. MD ~ CC: Wild Concepcion DATE OF SERVICE: 01/07/2020 PREOPERATIVE DIAGNOSIS: Right midshaft tibia-fibula fracture. POSTOPERATIVE DIAGNOSIS: Right midshaft tibia-fibula fracture. PROCEDURE: Treatment of right tib-fib fracture with IM nail. SURGEON: Kevin Onofre MD. CARDIAC EXERCISE SPECIALIST: Donita Simon PA-C. INDICATIONS FOR CARDIAC EXERCISE SPECIALIST: Throughout the case, extensive retraction and manipulation of the leg including holding reduction was required. This was afforded to me by my assistant professor of chemistry. ANESTHESIA: LMA. IMPLANTS: [employer] size 11.5 x 32 tibial nail with 3 proximal locking screws and 2 distal locking screws. ESTIMATED BLOOD LOSS: 100 mL. COMPLICATIONS: None. SPECIMENS: None. CONDITION UPON LEAVING THE OPERATING ROOM: Stable. INDICATIONS FOR PROCEDURE: The patient is an 84-year-old female who fell off her wheelchair and sustained a right midshaft tib-fib fracture. After discussion with she and her family, they elected for treatment with IM nail. DESCRIPTION OF PROCEDURE: Risks, benefits, alternatives, complications were discussed in detail with the patient including but not limited to risk of anesthesia, risk of damage to nerves, arteries, blood vessels, risk for [facility] [address] [place] [address] OPERATIVE REPORT Name: MARISELA THRASHER Room #: 443-P [facility] IN ..#: [id number] Admission: 01/06/20 Attend Phys: Wild Schmidt, Discharge: Date of : 31 Report #: [id number] infection, bleeding, risk for malunion, nonunion, and need for reoperation. Informed consent was obtained from the patient. The right leg was appropriately marked in the preoperative holding area. IV Ancef was given for preoperative antibiotics. She was brought to the operating room and placed in supine position on operating room table. LMA anesthesia was induced without complication. Tourniquet was placed on the right thigh. Right lower extremity was prepped and draped in normal sterile fashion. Timeout was performed properly identifying the patient and procedure as well as the instrumentation. All in the operating room were in agreement. She previously had a laterally based scar over her knee from her previous ORIF of her femur, so we used this scar as our incision. Incision was made with 10 blade through the skin. Dissection was taken down to the patellar fascia and deep flaps were developed medially and laterally. A lateral parapatellar arthrotomy was made and the threaded tip guidewire was placed on the tip of the tibial tubercle and taken down to the tibial canal under AP and lateral imaging to verify adequate starting portal. This was verified under AP and lateral imaging. An entry portal reamer was used to ream the entry portal and a ball-tip guidewire was taken down across the fracture site. The fracture was held reduced by my assistant professor of chemistry and a ball-tip guidewire was taken to the level of the physeal scar of the distal tibia. The nail was measured at a length of 32. The tibia was then sequentially reamed up to a size 13, at which point there was excellent chatter. A size 11.5 x 32 tibial nail was then placed over the guidewire and seated. After this, 3 proximal locking screws were placed using the outrigger for the tibial nail. The outrigger was removed. Two distal locking screws were placed using the perfect [place] technique from medial to lateral. After this, final fluoroscopic images were taken to verify adequate fracture reduction and placement of hardware. Wounds were thoroughly irrigated with normal saline. Incision was closed with 2-0 Vicryl, skin staple and a soft dressing and a Cam boot were applied. The patient tolerated this procedure well and went to recovery room under care of Anesthesia postoperatively. <ELECTRONICALLY SIGNED> By: Kevin Onofre MD 01/14/20 [id number] Kevin Onofre MD /nt
--- NOTE | 2020-01-14 09:49 | NUR ---
PT DCING TO SNF AT [facility] THIS MORNING. THEY HAVE ARRANGED A W/C VAN PICKUP FOR 11AM. PT, NURSING AND SON KULWANT UPDATED ON DC TIME. SON HERE TO VISIT PRIOR TO PT DC. CHART COPY AND ORDERS ARE READY TO BE SENT WITH THE PT. NURSING TO CALL REPORT.
--- NOTE | 2020-01-14 12:08 | NUR ---
PT CARE ASSUMED AT 0700. A&Ox4. PT PAIN CONTROLLED WELL WITH PAIN MEDICATION. PT DISCHARGED TO [facility]. RN TRIED TO CALL REPORT NURSE WAS BUSY AND COULD NOT TAKE REPORT. IV REMOVED. [facility] APPLIED RIGHT BEFORE PT WAS TRANSPORTED OUT. FALL PROTOCOL IN PLACE. CALL LIGHT WAS IN REACH.
== END 2020-01-14 11:20 | DRG 492 ==
LOC: ER 16:36 → EROBS 19:49 → 4S 19:49
PROVIDERS: Hospitalist; Nurse Practitioner Family; Orthopaedic Surgery; Physician Assistant; Physician Assistant Surgical; Surgery; ADMIT Internal Medicine; ATTEND Surgery
DX: S82.201A Unspecified fracture of shaft of right tibia, initial encounter for closed fracture (principal); E43 Unspecified severe protein-calorie malnutrition; G93.41 Metabolic encephalopathy; S22.089A Unspecified fracture of T11-T12 vertebra, initial encounter for closed fracture; D62 Acute posthemorrhagic anemia; E87.1 Hypo-osmolality and hyponatremia; I10 Essential (primary) hypertension; J45.909 Unspecified asthma, uncomplicated; M81.0 Age-related osteoporosis without current pathological fracture; S82.401A Unspecified fracture of shaft of right fibula, initial encounter for closed fracture; Z90.710 Acquired absence of both cervix and uterus; K21.9 Gastro-esophageal reflux disease without esophagitis; J44.9 Chronic obstructive pulmonary disease, unspecified; S92.351A Displaced fracture of fifth metatarsal bone, right foot, initial encounter for closed fracture; E87.8 Other disorders of electrolyte and fluid balance, not elsewhere classified; E87.6 Hypokalemia; G89.29 Other chronic pain; M54.9 Dorsalgia, unspecified; Z20.828 Contact with and (suspected) exposure to other viral communicable diseases; Z90.49 Acquired absence of other specified parts of digestive tract; Z98.42 Cataract extraction status, left eye; Z98.41 Cataract extraction status, right eye; Z99.3 Dependence on wheelchair; W05.0XXA Fall from non-moving wheelchair, initial encounter; Y93.89 Activity, other specified; Y92.89 Other specified places as the place of occurrence of the external cause; Y99.8 Other external cause status
CPT/HCPCS: 10195; 50010; 50101; 50386; 51412; 56525; 56526; 57091; 5717; 57180; 57503; 57506; 57925; 57926; 58101; 58168; 58186; 62110; 62900; 70005